=== PATIENT | female | born 1995 | race African-American/Black ===

== ENCOUNTER 2017-01-07 11:21 | Emergency (ER) | payer OTHER ==
[~2017-01-07] VITALS: Ht 160 cm; Wt 63.5 kg
[2017-01-07] MEDS ORDERED: CIPRO500 MG PO (11:34)
[2017-01-07 12:30] LABS: HEMATOCRIT 43.2 % (37.0-47.0); HEMOGLOBIN 14.6 gm/dL (12.0-15.0); MCH 31.2 pg (26.0-34.0); MCHC 33.7 g/dL (28.0-37.0); MCV 92.4 fL (80.0-100.0); RBC 4.67 mil/uL (4.20-5.00); RDW 14.4 % (10.5-14.5); WBC 6.3 thou/uL (4.0-11.0)
[2017-01-07 12:32] LABS: URINE BILIRUBIN 1+ (Negative); URINE BLOOD NEGATIVE (Negative); URINE GLUCOSE-RANDOM* NEGATIVE (Negative); URINE KETONES 3+ (Negative); URINE NITRITE NEGATIVE (Negative); URINE PROTEIN (DIPSTICK) 1+ (Negative); URINE SPECIFIC GRAVITY >= 1.030 (1.003-1.035)
[2017-01-07 12:38] LABS: ICTOTEST (BILI CONFIRMATORY) Negative (Negative); URINE COLOR DARK YELLOW
[2017-01-07 12:40] LABS: AMP/METHAMP Negative (Negative); BARBITURATES Negative (Negative); BENZODIAZEPINES Negative (Negative); COCAINE Negative (Negative); METHADONE Negative (Negative); OPIATES Negative (Negative); PCP Negative (Negative); THC POSITIVE (Negative); URINE RBC 3-10 Few /HPF (0-2); URINE WBC >25 Many /HPF (0-5)
[2017-01-07 12:41] LABS: CASTS None Seen /LPF (None Seen); CRYSTALS None Seen /LPF (None Seen); SQUAMOUS 0-3 Few /LPF (0-3)
[2017-01-07 12:42] LABS: ANION GAP 13 mmol/L (7-16); BUN 11 mg/dL (7-18); CALCIUM 9.7 mg/dL (8.5-10.1); CHLORIDE 99 mmol/L (98-107); CO2 24 mmol/L (21-32); GLUCOSE 115 mg/dL (74-106); POTASSIUM 3.4 mmol/L (3.5-5.1); SODIUM 136 mmol/L (136-145)
[2017-01-07 12:45] LABS: ALBUMIN 4.3 g/dL (3.4-5.0); ALKALINE PHOSPHATASE 62 U/L (46-116); SALICYLATE < 2.8 mg/dL (2.8-20.0); SGOT 21 U/L (15-37); SGPT 18 U/L (30-65); TOTAL BILIRUBIN 0.7 mg/dL (<0.1-1.0); TOTAL PROTEIN 8.6 g/dL (6.4-8.2)
[2017-01-07 12:58] LABS: ACETAMINOPHEN < 2 ug/mL (10-30)
[2017-01-07] MEDS ORDERED: ZYPREXA5 MG PO (13:26)
[2017-01-07 13:56] VITALS: BP 149/71
== END 2017-01-07 13:56 | disposition home or self-care (01) ==
LOC: ER 11:21
PROVIDERS: Emergency Medicine
DX: F20.9 Schizophrenia, unspecified (principal); J45.909 Unspecified asthma, uncomplicated